=== PATIENT | male | born 1990 | race Caucasian/White ===

== ENCOUNTER 2018-11-03 22:52 | Emergency (ER) | payer SELFPAY, OTHER ==
[2018-11-03] MEDS: ACETAMINOPHEN 325 MG TAB PO (23:26)
[2018-11-03] MEDS: LORAZEPAM 1 MG TAB PO (23:26)
== END 2018-11-04 01:10 | disposition home or self-care (01) ==
LOC: FTE 22:52
DX: R07.9 Chest pain, unspecified (principal)
CPT/HCPCS: 71045; 93005; 99284-25